=== PATIENT | male | born 1955 | race Caucasian/White ===

== ENCOUNTER 2018-12-25 17:32 | Emergency (ER) | payer OTHER ==
[~2018-12-25] VITALS: Ht 185.4 cm; Wt 69.8 kg
[2018-12-25] MEDS ORDERED: ULTRAM50 MG PO (17:49)
[2018-12-25] MEDS ORDERED: CARVEDILOL6.25 MG PO (17:49)
[2018-12-25] MEDS ORDERED: DULOXETINE HCL20 MG PO (17:49)
[2018-12-25] MEDS ORDERED: LEVOTHYROXINE50 MCG PO (17:50)
[2018-12-25] MEDS ORDERED: ATIVAN1 MG PO (18:40)
--- NOTE | 2018-12-26 16:59 | EKG ---
[facility] [address] [facility] [place] [address] Signed Normal sinus rhythm Normal ECG No previous ECGs available Confirmed by NICK COLLADO DO ([id number]) on 12/26/2018 4:59:29 PM Electronically Signed By: NICK COLLADO DO 12/26/18 1659 PATIENT NAME: AIDAN MOORE Electrocardiogram DATE OF : 59 PHYSICIAN: NICK COLLADO DO REPORT #: [id number] REPORT IS CONFIDENTIAL AND NOT TO BE RELEASED WITHOUT AUTHORIZATION
== END 2018-12-25 19:03 | disposition home or self-care (01) ==
LOC: ED 17:32
DX: R00.2 Palpitations (principal); R42 Dizziness and giddiness; T40.4X5A Adverse effect of other synthetic narcotics, initial encounter; T43.215A Adverse effect of selective serotonin and norepinephrine reuptake inhibitors, initial encounter; I10 Essential (primary) hypertension; F41.9 Anxiety disorder, unspecified; F32.9 Major depressive disorder, single episode, unspecified; Z87.891 Personal history of nicotine dependence; Z90.89 Acquired absence of other organs; Z88.8 Allergy status to other drugs, medicaments and biological substances; Z79.899 Other long term (current) drug therapy
CPT/HCPCS: 70450; 93005; 93010; 99284-25

== ENCOUNTER 2019-03-16 13:14 | Day surgery (SDC) | payer OTHER ==
[~2019-03-16] VITALS: Ht 185.4 cm; Wt 66.2 kg
[~2019-03-16 13:14] MED LIST: ATIVAN1 MG PO; CARVEDILOL6.25 MG PO; DULOXETINE HCL20 MG PO; LEVOTHYROXINE50 MCG PO; ULTRAM50 MG PO
[2019-03-16] MEDS ORDERED: GABAPENTIN300 MG PO (13:40)
--- NOTE | 2019-03-16 15:43 | NUR ---
03/16/19 1543 Ana Mabry 1520 PT PACU SLEEPY BUT AROUSABLE DENIES PAIN AND NAUSEA.
--- NOTE | 2019-03-17 18:55 | OR ---
[facility] [address] [place], [place] [address] Signed DATE OF OPERATION: 03/16/2019 SURGEON: Aidan Byrne MD PREOPERATIVE DIAGNOSIS: Colon screening. POSTOPERATIVE DIAGNOSIS: Normal colon to cecum. PROCEDURE: Total colonoscopy to cecum. ANESTHESIA: Intravenous sedation, fentanyl 200 mcg and Versed 5 mg. INDICATION: This 64-year-old white man is a patient of Sheryl Vann PA-C. He is here for a screening colonoscopy. He has no family history of colon cancer or symptoms of bleeding, diarrhea, or constipation. He has had the onset of right groin pain or more accurately scrotal pain having undergone right inguinal hernia by me 6 years ago. Examination shows no sign of recurrent hernia or other issue. He was admitted to undergo colonoscopy. He understands the risks of bleeding, infection, and perforation. FINDINGS: The prep was excellent. Complete colonoscopy was undertaken to the cecum without problem. There were no signs of diverticular formation, colitis, cancer, polyps, or other abnormality. DESCRIPTION OF PROCEDURE: The patient was brought to the endoscopy suite and placed in lateral decubitus position. He was given intravenous sedation to the point of slurred speech and nystagmus. Digital rectal examination was normal. An Olympus video colonoscope was passed in the rectum and manipulated throughout the colon ultimately intubating the cecum itself. The ileocecal valve and appendiceal orifice were normal. Scope was withdrawn from that point and examination throughout showed no sign of abnormality, specifically no polyps, diverticular formation, colitis, or cancer. Retroflexed view was normal as well. Scope was removed and the patient was taken to recovery room in good condition. Electronically Signed By: AIDAN BYRNE MD 03/17/19 9415 PATIENT NAME: AIDAN MOORE OPERATIVE REPORT DATE OF : 59 REPORT #: [id number] PHYSICIAN: AIDAN BYRNE MD PCP: SHERYL VANN PA-C REPORT IS CONFIDENTIAL AND NOT TO BE RELEASED WITHOUT AUTHORIZATION [facility] [address] [place] [id number] Signed CONCLUDING DIAGNOSIS: Normal colon. PLAN: Recommend repeat colonoscopy in 10 years, sooner if clinically indicated. He will return to the ongoing care of PA. Surya MD KAUSHIK Ridley/MELOL /[id number] cc: Sheryl Vann PA-C Copies: SHERYL VANN PA-C ~ Electronically Signed By: AIDAN BYRNE MD 03/17/19 1855 PATIENT NAME: AIDAN MOORE OPERATIVE REPORT DATE OF : 59 REPORT #: [id number] PHYSICIAN: AIDAN BYRNE MD PCP: SHERYL VANN PA-C REPORT IS CONFIDENTIAL AND NOT TO BE RELEASED WITHOUT AUTHORIZATION
== END 2019-03-16 15:56 | disposition home or self-care (01) ==
LOC: OPS 13:14 → DS 14:15 → OPS 15:56
PROVIDERS: Surgery
PROC: 0DJD8ZZ Inspection of Lower Intestinal Tract, Via Natural or Artificial Opening Endoscopic (ICD-10-PCS; principal; 2019-03-16 14:15)
DX: Z12.11 Encounter for screening for malignant neoplasm of colon (principal); E03.9 Hypothyroidism, unspecified; I10 Essential (primary) hypertension; Z88.8 Allergy status to other drugs, medicaments and biological substances
CPT/HCPCS: 99153; G0500; J2250; J3010; J7120

== ENCOUNTER 2019-09-01 12:32 | Emergency (ER) | payer OTHER ==
[~2019-09-01] VITALS: Ht 185.4 cm; Wt 74.8 kg
[~2019-09-01 12:32] MED LIST changes: +GABAPENTIN300 MG PO
--- OUTSIDE RECORDS SUMMARY | 2019-09-01 12:34 | XMS ---
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 Keysha has no Care Guidelines for this patient. Demond VISIT COUNT (12 MO.) 2 JOSH Lloyd TOTAL 2 NOTE: Visits indicate total known visits. ED/UCC VISIT TRACKING (12 MO.) 09/01/2019 12:33 [facility]igley [place] TYPE: Emergency COMPLAINT: - CHEST PAIN 12/25/2018 17:[address] [facility] [place] TYPE: Emergency COMPLAINT: - MEDICATION REACTION DIAGNOSES: - Major depressive disorder, single episode, unspecified - Advrs effect of slctv seroton/norepineph reup inhibtr, init - Anxiety disorder, unspecified - Essential (primary) hypertension - Other [facility] (current[facility] drug therapy - Acquired absence of other organs - Palpitations - Allergy status to oth drug/meds/biol subst status - Adverse effect of other synthetic narcotics, init encntr - Personal history of nicotine dependence - Dizziness and giddiness INPATIENT VISIT TRACKING (12 MO.) No inpatient visits to display in this time frame [email or web address]
[2019-09-01] MEDS ORDERED: CIPRO500 MG PO (12:44)
[2019-09-01] MEDS ORDERED: WELLBUTRIN SR200 MG PO (12:45)
[2019-09-01] MEDS ORDERED: MIRTAZAPINE30 MG PO (12:45)
[2019-09-01] MEDS ORDERED: ASPIR-TRIN325 MG PO (13:25)
[2019-09-01] MEDS ORDERED: PANTOPRAZOLE SO40 MG PO (16:18)
--- NOTE | 2019-09-01 16:34 | EKG ---
[facility] [address] [facility] [place] [address] Signed Normal sinus rhythm Normal ECG No previous ECGs available Confirmed by NICK COLLADO DO ([id number]) on 09/01/2019 4:33:59 PM Electronically Signed By: NICK COLLADO DO 09/01/19 1634 PATIENT NAME: AIDAN MOORE Electrocardiogram DATE OF : 59 PHYSICIAN: NICK COLLADO DO REPORT #: [id number] REPORT IS CONFIDENTIAL AND NOT TO BE RELEASED WITHOUT AUTHORIZATION
--- NOTE | 2019-09-01 16:34 | EKG ---
[facility] [address] [facility] [place] [address] Signed Normal sinus rhythm Nonspecific T wave abnormality Abnormal ECG When compared with ECG of 01-SEP-2019 12:34, (Unconfirmed) No significant change was found Confirmed by NICK COLLADO DO ([id number]) on 09/01/2019 4:34:11 PM Electronically Signed By: NICK COLLADO DO 09/01/19 1634 PATIENT NAME: TERESAAIDAN CANDACE Electrocardiogram DATE OF : 59 PHYSICIAN: NICK COLLADO DO REPORT #: [id number] REPORT IS CONFIDENTIAL AND NOT TO BE RELEASED WITHOUT AUTHORIZATION
== END 2019-09-01 16:26 | disposition home or self-care (01) ==
LOC: ED 12:32
DX: K21.9 Gastro-esophageal reflux disease without esophagitis (principal); R07.9 Chest pain, unspecified; I10 Essential (primary) hypertension; F32.9 Major depressive disorder, single episode, unspecified; Z79.899 Other long term (current) drug therapy
CPT/HCPCS: 71046; 80053; 83735; 84484; 85025; 93005; 93010; 99285-25

== ENCOUNTER 2020-01-25 12:14 | Emergency (ER) | payer OTHER ==
[~2020-01-25] VITALS: Ht 185.4 cm; Wt 72.6 kg
[~2020-01-25 12:14] MED LIST changes: +ASPIR-TRIN325 MG PO; +CIPRO500 MG PO; +MIRTAZAPINE30 MG PO; +PANTOPRAZOLE SO40 MG PO; +WELLBUTRIN SR200 MG PO
[2020-01-25] MEDS ORDERED: OMEPRAZOLE20 MG PO (12:35)
[2020-01-25] MEDS ORDERED: LAMOTRIGINE100 MG PO (12:36)
--- NOTE | 2020-01-25 16:58 | EKG ---
[facility] [address] [facility] [place] [address] Signed Normal sinus rhythm Anteroseptal infarct , age undetermined Abnormal ECG When compared with ECG of 01-SEP-2019 13:15, Anteroseptal infarct is now present Nonspecific T wave abnormality no longer evident in Lateral leads Confirmed by KEVIN PALMA MD ([id number]) on 01/25/2020 4:58:36 PM Electronically Signed By: KEVIN PALMA MD 01/25/20 1658 PATIENT NAME: AIDAN MOORE Electrocardiogram DATE OF : 59 PHYSICIAN: KEVIN PALMA MD REPORT #: [id number] REPORT IS CONFIDENTIAL AND NOT TO BE RELEASED WITHOUT AUTHORIZATION
== END 2020-01-25 14:40 | disposition home or self-care (01) ==
LOC: ED 12:14
DX: B34.9 Viral infection, unspecified (principal); I10 Essential (primary) hypertension; F32.9 Major depressive disorder, single episode, unspecified
CPT/HCPCS: 80053; 84484; 85025; 93005; 93010; 99284-25

== ENCOUNTER 2020-10-04 08:04 | Day surgery (SDC) | payer OTHER ==
[~2020-10-04] VITALS: Ht 182.9 cm; Wt 81.4 kg
[~2020-10-04 08:04] MED LIST changes: +LAMOTRIGINE100 MG PO; +OMEPRAZOLE20 MG PO
--- NOTE | 2020-10-04 08:10 | NUR ---
PT ARRIVED TO DAY SURGERY WALKING INDEPENDENTLY AND PLACED IN RM 7. WARM BLANKET PROVIDED.
--- NOTE | 2020-10-04 08:43 | NUR ---
PRE PROCEDURE CHECK IN COMPLETE. PT RESTING IN LOCKED AND LOWERED BED, CALL LIGHT WITHIN REACH.
--- NOTE | 2020-10-04 09:10 | NUR ---
10/04/20 0910 Page Avalos 0907 PATIENT ARRIVES TO PACU SLEEPING. RESP EVEN AND UNLABORED. ROOM AIR SATS >93%. WAKES UP WITH VERBAL STIMULI.
--- NOTE | 2020-10-04 10:08 | OR ---
[facility] [address] [place], [place] [address] Signed DATE OF OPERATION: 10/04/2020 SURGEON: Fidel Mchugh MD PREOPERATIVE DIAGNOSES: 1. History of treated Helicobacter pylori in the . 2. Gastroesophageal reflux disease. 3. Hoarseness. 4. Vomiting. POSTOPERATIVE DIAGNOSES: 1. Mild diffuse gastritis. 2. Tiny hiatal hernia. PROCEDURE: EGD with CLOtest and biopsies of the antrum and GE junction. ESTIMATED BLOOD LOSS: None. INDICATIONS: Aidan is a 65-year-old gentleman asked to see me for upper endoscopy. He told me about his colonoscopy, but never an upper endoscopy. He said he was diagnosed with H pylori in the . He said he received antibiotics. He is now taking omeprazole twice a day and he is still having breakthrough symptoms of acid reflux and vomiting. In the office, I gave him a pamphlet on upper endoscopy and we looked at that together along with the risks including, but not limited to gas bloating, crampy abdominal pain, bleeding, perforation requiring surgery, and missed diagnosis. He had expressed understanding and wished to proceed. DESCRIPTION OF PROCEDURE: Aidan was taken into our endoscopy suite and placed in the supine semi-recumbent position. He was given 3.5 mg of Versed and 100 mcg of fentanyl. The posterior oropharynx was anesthetized with Hurricaine spray. A bite block was utilized for the case. The adult gastroscope was introduced and advanced out into the third portion of the duodenum without difficulty. The duodenum and pyloric channel were unremarkable. The stomach showed mild diffuse erythematous changes throughout. No ulcerations in the pyloric channel or the stomach. Upon retroflexion of scope, he appears to have a very tiny hiatal hernia. The scope was withdrawn up through the area of the GE junction, which was compliant without stricture. There was no gastric or esophageal varices. Electronically Signed By: FIDEL MCHUGH MD 10/04/20 1008 PATIENT NAME: AIDAN MOORE OPERATIVE REPORT DATE OF : 59 REPORT #: [id number] PHYSICIAN: FIDEL MCHUGH MD PCP: SHERYL MORSE PA-C REPORT IS CONFIDENTIAL AND NOT TO BE RELEASED WITHOUT AUTHORIZATION [facility] [address] [place] [address] Signed Really, no disruption to the Z-line. No Frias's mucosa. We went and took a single biopsy along the edge of the Z-line for pathologic review. No inflammatory changes in the distal, middle or upper esophagus. The scope was withdrawn and the gas suctioned out. His vocal cords appeared unremarkable. After this, the scope was completely removed. Aidan tolerated the procedure quite well. RECOMMENDATIONS: I will see Aidan back in my office in 7 to 14 days to review his results. Fidel Mchugh MD ALB/MODL /[id number] cc: MD Sheryl Quiles PA-C Copies: FIDEL MCHUGH MD, CHLOE K PA-C ~ Electronically Signed By: FIDEL MCHUGH MD 10/04/20 1008 PATIENT NAME: AIDAN MOORE OPERATIVE REPORT DATE OF : 59 REPORT #: [id number] PHYSICIAN: FIDEL MCHUGH MD PCP: SHERYL MORSE PA-C REPORT IS CONFIDENTIAL AND NOT TO BE RELEASED WITHOUT AUTHORIZATION
--- NOTE | 2020-10-10 16:43 | PATH ---
[facility] [address] [place], [place] [address] Signed SPECIMEN(S): A ANTRUM/PYLORUS SPECIMEN(S): B GE JUNCTION SPECIMEN SOURCE: A. ANTRUM/PYLORUS B. GE JUNCTION CLINICAL HISTORY: Acid reflux. Postop: Gastritis. MICROSCOPIC DESCRIPTION: Histologic sections of all submitted blocks are examined by light microscopy. These findings, together with the gross examination, support the pathologic diagnosis. FINAL PATHOLOGIC DIAGNOSIS: A. Stomach, antrum/pylorus, biopsy: - Antral mucosa with reactive gastropathy. - Negative for Helicobacter organisms. - Negative for dysplasia or malignancy. B. Gastroesophageal junction, biopsy: - Squamocolumnar junctional mucosa with minimal chronic inflammation and reactive changes, suggestive of reflux esophagitis. - Negative for intestinal metaplasia, dysplasia, or malignancy. COMMENT: Regarding specimen A: An H. pylori immunohistochemical stain (with appropriately staining controls) was performed and is negative for Helicobacter organisms. NAL:cml:C2NR GROSS DESCRIPTION: Two specimens are received in two containers, labeled "Aidan Lewis." A. The specimen, labeled "Aidan Lewis, #1," and designated on the requisition "pylorus/antrum biopsy," is received in formalin and consists of one navas soft tissue fragment that measures 0.4 cm in greatest dimension. The specimen is entirely submitted in cassette (A1). B. The specimen, labeled "Aidan Lewis, #2," and designated on the requisition "GE junction biopsy," is received in formalin and consists of one navas soft tissue fragment that measures 0.3 cm in greatest dimension. The specimen is entirely submitted in cassette (B1). FB (under the direct supervision of a pathologist) PATIENT NAME: AIDAN LEWIS PATHOLOGY DATE OF : 59 REPORT #: [id number] PHYSICIAN: SARAH PATHOLOGY PCP: CHRIS MORSE PA-C REPORT IS CONFIDENTIAL AND NOT TO BE RELEASED WITHOUT AUTHORIZATION [facility] [address] [place], [place] [address] Signed The Gross Description was prepared using a voice recognition system. The report was reviewed for accuracy; however, sound-alike word errors, addition and/or deletions may occur. If there is any question about this report, please contact Client Services. ADDITIONAL NOTES: Immunohistochemical and/or in situ hybridization studies were performed on this case with the appropriate positive controls that react as expected. This test was developed and its performance characteristics determined by [facility]. It has not been cleared or approved by the U.S. Food and Drug Administration. The FDA has determined that such clearance or approval is not necessary. This test is used for clinical purposes. It should not be regarded as investigational or for research. [facility] is certified under the Clinical Laboratory Improvement Amendments of 1988 (CLIA) as qualified to perform high complexity clinical laboratory testing. PERFORMING LABORATORY: The technical component was performed by [facility], [address] [place] [address] (Nascar Racer: Breanna Tello MD; CLIA# [id number]). [facility], [address] [address] (CLIA# [id number]). Diagnostician: Jesenia Laurent MD Pathologist Electronically Signed 10/10/2020 Copies: ~ PATIENT NAME: TERESAAIDAN CANDACE PATHOLOGY DATE OF : 59 REPORT #: [id number] PHYSICIAN: SARAH NUNEZ PCP: CHRIS MORSE PA-C REPORT IS CONFIDENTIAL AND NOT TO BE RELEASED WITHOUT AUTHORIZATION
== END 2020-10-04 09:55 | disposition home or self-care (01) ==
LOC: DS 08:04 → OPS 08:04 → DS 09:00 → OPS 09:00
PROVIDERS: ATTEND Colon & Rectal Surgery
PROC: 0DB78ZX Excision of Stomach, Pylorus, Via Natural or Artificial Opening Endoscopic, Diagnostic (ICD-10-PCS; 2020-10-04)
PROC: 0DB48ZX Excision of Esophagogastric Junction, Via Natural or Artificial Opening Endoscopic, Diagnostic (ICD-10-PCS; principal; 2020-10-04 09:00)
DX: K29.70 Gastritis, unspecified, without bleeding (principal); K31.9 Disease of stomach and duodenum, unspecified; K21.00 Gastro-esophageal reflux disease with esophagitis, without bleeding; K44.9 Diaphragmatic hernia without obstruction or gangrene; I10 Essential (primary) hypertension; F32.9 Major depressive disorder, single episode, unspecified; E03.9 Hypothyroidism, unspecified; F17.200 Nicotine dependence, unspecified, uncomplicated; Z79.899 Other long term (current) drug therapy; Z79.82 Long term (current) use of aspirin; Z79.890 Hormone replacement therapy; Z88.8 Allergy status to other drugs, medicaments and biological substances
CPT/HCPCS: 86677; G0500; J2250; J3010; J7121

== ENCOUNTER 2022-08-17 17:36 | Emergency (ER) | payer MEDICARE, OTHER ==
[~2022-08-17] VITALS: Ht 182.9 cm; Wt 76.2 kg
--- OUTSIDE RECORDS SUMMARY | 2022-08-17 17:39 | XMS ---
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 EJeni VISIT COUNT (12 MO.) 1 JOSH Lloyd TOTAL 1 NOTE: Visits indicate total known visits. ED/UCC VISIT TRACKING (12 MO.) 08/17/2022 17:36 JOS[facility] Quigley [place] TYPE: Emergency COMPLAINT: - DIARRHEA INPATIENT VISIT TRACKING (12 MO.) No inpatient visits to display in this time frame [email or web address]
[2022-08-17] MEDS ORDERED: CARVEDILOL12.5 MG PO (17:54)
[2022-08-17] MEDS ORDERED: BUSPIRONE HCL7.5 MG PO (17:54)
[2022-08-17] MEDS ORDERED: GABAPENTIN300 MG PO (17:54)
== END 2022-08-17 18:24 | disposition home or self-care (01) ==
LOC: ED 17:36
DX: K52.1 Toxic gastroenteritis and colitis (principal); T50.8X5A Adverse effect of diagnostic agents, initial encounter; I10 Essential (primary) hypertension; F17.290 Nicotine dependence, other tobacco product, uncomplicated; Z88.8 Allergy status to other drugs, medicaments and biological substances; Z79.899 Other long term (current) drug therapy; Z79.82 Long term (current) use of aspirin
CPT/HCPCS: A9270

== ENCOUNTER 2024-12-02 16:02 | Emergency (ER) | payer MEDICARE, OTHER ==
[~2024-12-02] VITALS: Ht 182.9 cm; Wt 73.9 kg
[~2024-12-02 16:02] MED LIST changes: +ATORVASTATIN CA40 MG PO; +ATROVENT HFA12.9 GM INH; +BUSPIRONE HCL7.5 MG PO; +CARVEDILOL12.5 MG PO; +CHLORTHALIDONE25 MG PO; +ESOMEPRAZOLE MA40 MG PO; +PAXLOVID 300-11 EAC1 PO; +PREDNISONE20 MG PO
[2024-12-02] MEDS ORDERED: LAMOTRIGINE100 MG PO (17:06)
[2024-12-02 17:36] VITALS: BP 148/102
== END 2024-12-02 17:37 | disposition home or self-care (01) ==
LOC: ED 16:02
DX: K40.90 Unilateral inguinal hernia, without obstruction or gangrene, not specified as recurrent (principal); I10 Essential (primary) hypertension; F17.200 Nicotine dependence, unspecified, uncomplicated; Z88.8 Allergy status to other drugs, medicaments and biological substances; Z79.899 Other long term (current) drug therapy
CPT/HCPCS: 99283

== ENCOUNTER 2025-06-24 09:49 | Day surgery (SDC) | payer MEDICARE ==
[2025-06-24] VITALS (8 sets, daily range): BP systolic 132–148; BP diastolic 72–89
[~2025-06-24] VITALS: Ht 185.4 cm; Wt 78.9 kg
[~2025-06-24 09:49] MED LIST changes: +ASPIRIN REGIMEN81 MG PO; +BUSPIRONE HCL10 MG PO; -BUSPIRONE HCL7.5 MG PO; +CEFAZOLIN SODIUM 2 GM/20 ML SYR IV SCH; +IBLOOD GLUCOSE TEST STRIP 1 EA TEST VI PRN; +LACTATED RINGER'S 1,000 ML IV SCH; +LIDOCAINE HCL 1% 5 ML SDV INJ ONE; +LORAZEPAM1 MG PO; +OXYBUTYNIN CHLOR5 M1 PO
[2025-06-24] MEDS ORDERED: ACETAMINOPHEN 1,000 MG/100 ML VIAL ONE (12:27)
[2025-06-24] MEDS ORDERED: DEXAMETHASONE SOD PHOS 4 MG/ML VIAL ONE (12:27)
[2025-06-24] MEDS ORDERED: LIDOCAINE HCL 2% 5 ML SDV ONE (12:27)
[2025-06-24] MEDS ORDERED: fentaNYL citrate 100 MCG/2 ML VIAL ONE (12:27)
[2025-06-24] MEDS ORDERED: LORazepam 1 MG TAB PO PRN (12:45)
[2025-06-24] MEDS ORDERED: OXYCODONE/APAP 5/325 TAB PO PRN (12:45)
[2025-06-24] MEDS ORDERED: LACTATED RINGER'S 1,000 ML IV SCH (12:45)
[2025-06-24] MEDS ORDERED: HYDROmorphone HCL 1 MG/ML SYR IV PRN ×2 (12:45→13:00)
[2025-06-24] MEDS ORDERED: NALOXONE HCL 0.4 MG SYR IV PRN (13:00)
[2025-06-24] MEDS ORDERED: IBLOOD GLUCOSE TEST STRIP 1 EA TEST VI PRN (13:00)
[2025-06-24] MEDS ORDERED: fentaNYL citrate 50 MCG/ML SDV IV PRN (13:00)
[2025-06-24] MEDS ORDERED: PROCHLORPERAZINE EDISYLATE 10 MG/2 ML VIAL IV PRN (13:00)
[2025-06-24] MEDS ORDERED: LACTATED RINGER'S 1,000 ML IV ONE (13:19)
[2025-06-24] MEDS ORDERED: TRANEXAMIC ACID 1,000 MG/10 ML AMP ONE (13:41)
--- NOTE | 2025-06-24 14:25 | NUR ---
06/24/25 1425 Alvina Campbell 1356- PT PRESENTS TO PACU, SEMI NDIAYE POSITION, O2 AT 6L PER MASK. BREATHING EVEN AND NON LABORED. LR INFUSING TO RFA. [address] AND CBI INFUSING. DRAINED 1200 ML OF PINK FLUID FROM CATHETER BAG AND CBI BAGS MARKED FOR STARTING. ABD SOFT, NON DISTENDED. ALL MONITORS IN PLACE. 1402- PT WAKES ON OWN AT THIS TIME, REORIENTED TO TIME AND PLACE. REPORTS A LITTLE PAIN AND NO NAUSEA. ORIENTED TO CATHETER AND CBI USE. 1405- PT MOVED TO ROOM AIR AT THIS TIME. 1415- PT DROWSY BUT REMAINS AWAKE, REPORTS PAIN WORSENING, SOME "INSIDE" BUT ALSO AT THE TIP OF HIS PENIS. EDUCATED ON CATHETER. WILL MEDICATE PER ORDERS.
--- NOTE | 2025-06-24 14:55 | NUR ---
PATIENT ARRIVED TO THE UNIT BY BED. REPORT RECEIVED BY DHEERAJ MI FROM PACU.
[2025-06-24] MEDS ORDERED: SEVOFLURANE 250 ML BTL INH ONE (14:57)
[2025-06-24] MEDS ORDERED: GABAPENTIN800 MG PO (14:58)
[2025-06-24] MEDS ORDERED: ESOMEPRAZOLE MA40 MG PO (14:58)
--- NOTE | 2025-06-24 15:05 | NUR ---
VITAL SIGNS TAKEN AND DOCUMENTED IN THE CHART. PATIENT IS SITTING WITH THE PATIENT AT BEDSIDE. PHASE TWO ASSESSMENT COMPLETE. PATIENT IS ALERT AND ORIENTED TIMES FOUR. PATIENT WITH SCD'S ON. CARDIAC WITH NORMAL S1/S2 ON AUSCULTATION. RADIAL AND PEDAL PULSES ARE STRONG BILATERALLY. NO EDEMA NOTED. SENSATION INTACT WITH NO COMPLAINTS OF NUMBNESS OR TINGLING. PATIENT IS ON ROOM AIR AND LUNG SOUNDS ARE CLEAR THROUGHOUT. NO SOB. PATIENT IS ON A REGULAR DIET AND BOWEL TONES ARE ACTIVE IN ALL FOUR QUADRANTS. LAST BM WAS 06/24/25. PATIENT REPORTS BEING THIRSTY BUT IS NOT HUNGRY. CBI IN PLACE. URINE IS PALE PINK AT THIS TIME. IV SITE FLUSHED WITH 10 ML NORMAL SALINE. LR IS INFUSING AT 75 ML/HR. PATIENT IS ON BED REST. PATIETN REPORTS PAIN 7/10 AT THE TIP OF THE PENIS. FEW DROPS OF BLOOD NOTED ON THE CHUX. PATIENT STATED NO FURTHER NEEDS AT THIS TIME. CALL LIGHT AND PERSONAL BELONGINGS ARE WITHIN REACH.
[2025-06-24] MEDS ORDERED: MEN'S 50 PLUS1 EACH PO (16:03)
[2025-06-24] MEDS ORDERED: VITAMIN D325 MCG PO (16:04)
[2025-06-24] MEDS ORDERED: MELATONIN10 M2 PO (16:04)
[2025-06-24] MEDS ORDERED: B COMPLEX1 EACH PO (16:04)
--- NOTE | 2025-06-24 16:04 | NUR ---
MED REC COMPLETE
--- NOTE | 2025-06-24 16:10 | NUR ---
PATIENT IS LYING IN BED WITH HOB ELEVATED. PATIENT WITH EYES OPEN AND RESPIRATIONS ARE EVEN AND UNLABORED. PATIENT IS SITTING IN THE CHAIR AT BEDSIDE. URINE REMAINS VERY PALE YELLOW. PATIENT STATED NO FURTHER NEEDS AT THIS TIME. CALL LIGHT AND PERSONAL BELONGINGS ARE WITHIN REACH.
--- NOTE | 2025-06-24 16:59 | NUR ---
REPORT RECEIVED FROM DHEERAJ JOHNSON IN THE ER.
--- NOTE | 2025-06-24 17:05 | NUR ---
PATIENT ARRIVED TO THE MEDICAL SURGICAL FLOOR AT THIS TIME.
--- NOTE | 2025-06-24 17:30 | NUR ---
PATIENT IS LYING IN BED WITH HOB ELEVATED. PATIENT WITH EYES OPEN AND RESPIRATIONS ARE EVEN AND UNLABORED. URINE IS PALE PEACH COLOR. PATIENT REMAINS AT THE BEDSIDE. PATIENT STATED NO FURTHER NEEDS AT THIS TIME. CALL LIGHT AND PERSONAL BELONGINGS ARE WITHIN REACH.
--- NOTE | 2025-06-24 18:06 | NUR ---
VITAL SIGNS AND INTAKE AND OUTPUT VALUES TAKEN AND DOCUMENTED IN THE CHART. CBI IS WATERMELON COLORED. FLOW INCREASED AT THIS TIME. PATIENT REPORTS NOT GETTING A DINNER TRAY. DHEERAJ VELEZ TOOK IN SOME FOOD FOR THE PATIENT AT THIS TIME. PATIENT STATED NO FURTHER NEEDS AT THIS TIME. CALL LIGHT AND PERSONAL BELONGINGS ARE WITHIN REACH.
--- NOTE | 2025-06-24 19:36 | NUR ---
RECEIVED REPORT. CHANGED CBI BAG AND EMPTIED AGUILERA. PT REPORTS SPIKE OF PAIN AT URETHRA. CALL LIGHT IN REACH
[2025-06-24] MEDS ORDERED: GABAPENTIN 300 MG CAP PO SCH (21:00)
[2025-06-24] MEDS ORDERED: GABAPENTIN 400 MG CAP PO SCH (21:00)
[2025-06-24] MEDS ORDERED: FAMOTIDINE 20 MG/ 2 ML VIAL IV SCH (21:00)
--- NOTE | 2025-06-24 21:01 | NUR ---
VITALS, ASSESSMENT. GIVEN PRN PAIN MEDICATION. PT DECLINES OTHER MEDS FOR NOW, WOULD LIKE TO TAKE THEM LATER IN EVENING. I&OS, REPLACED CBI BAG. TITRATED RATE BACK UP TO MODERATE D/T RED OUTPUT. APPLIED LUBIRCATION JELLY TO CATHETER D/T URETHRAL DISCOMFORT. CATHETER CARE PERFORMED. NO OTHER NEEDS, CALL LIGHT IN REACH
--- NOTE | 2025-06-24 22:18 | NUR ---
PT C/O BURNING AND IRRITATION AT URETHRAL OPENING, NOT RELIEVED WITH LUBRICATING CATHETER. NOTIFIED DIMPLE ALEX FOR ORDER FOR UROJET LIDOCAINE GEL. SEE NEW ORDER.
[2025-06-24] MEDS ORDERED: LIDOCAINE 2% VISCOUS 6 ML SYR TOP ONE (22:30)
--- NOTE | 2025-06-24 23:12 | NUR ---
CHANGED CBI BAG. APPLIED UROJECT LIDOCAINE GEL TO URETHRA AND CATHETER FOR IRRITATION. PT REPORTS SOME RELIEF IN ROOM. REFRESHED ICE WATER. NO OTHER NEEDS, CALL LIGHT IN REACH
[2025-06-25] VITALS (7 sets, daily range): BP systolic 131–143; BP diastolic 79–89
--- NOTE | 2025-06-25 00:20 | NUR ---
PT ALERT IN BED, NO NEEDS FOR NOW. CBI DECREASED TO SLOW DRIP. CALL LIGHT IN REACH
--- NOTE | 2025-06-25 02:33 | NUR ---
PT REPORTS SOME CHEST PRESSURE, "LIKE SOMEONE IS SITTING ON CHEST." DENIES SOB, NAUSEA, HEADACHE, CHILLS, PAIN ELSEWHERE. VITALS SIGNS STABLE, LUNG SOUNDS CLEAR. PT IN NO ACUTE DISTRESS. NOTIFIED MD, SEE ORDER FOR STAT EKG.
--- NOTE | 2025-06-25 02:52 | NUR ---
EKG PERFORMED BY RT. GIVEN PRN PERCOCET FOR INCREASING PAIN. PT REPORTS CHEST TIGHTNESS IMPROVING AFTER INCENTIVE SPIROMETER. GIVEN SPRITE, NO OTHER NEEDS FOR NOW. CALL [facility] INREACH
--- NOTE | 2025-06-25 05:46 | NUR ---
VITALS, I&OS. PT URINE REMAINS YELLOW-PINK TINGED AFTER CLAMPING CBI. PT REPORTS PAIN IS IMPROVED FROM EARLIER. NO NEEDS PRESENTLY, CALL LIGHT IN REACH
--- NOTE | 2025-06-25 06:33 | NUR ---
VITALS, AM MEDS. GIVEN PRN PERCOCET. RESTARTED CBI AT LOW RATE D/T RED-TINGED OUTPUT. PT REPORTS PAIN IMPROVED. NO OTHER NEEDS, CALL LIGHT IN REACH
--- NOTE | 2025-06-25 07:19 | NUR ---
REPORT RECEIVED FROM DHEERAJ ROBERTS. PT RESTING IN BED AWAKE AND ALERT. CBI RUNNING SLOW WITH RED OUTPUT IN AGUILERA CATH. CBI INCREASED TO MODERATE FLOW AT THIS TIME. PT REPORTS HIS PAIN IS A 2/10 AND HAS NO REQUESTS. CALL LIGHT IN REACH.
--- NOTE | 2025-06-25 08:10 | NUR ---
MEDICATION ADMINISTERED, SEE MAR. PT CONTINUES TO REPORT PAIN TOLERABLE AT /. AGUILERA CATH TUBING CONTINUES TO HAVE SMALL AMOUNT OF SEDIMENT SIZED BLOOD CLOTS IN LINE AND THE FLUID IS A DARKER PINK. CBI MAINTAINED AT A MODERATE-SLOW FLOW. BREAKFAST TRAY ARRIVES. PT HAS NO REQUESTS, CALL LIGHT IN REACH.
--- NOTE | 2025-06-25 09:20 | NUR ---
PTs AGUILERA CATH BEGINNING TO RUN LIGHT PINK. PT CONTINUES TO REPORT PAIN 2/10 AND TOLERABLE. NO DRAINAGE FROM URETHRAL MEATUS, PT DENIES PAIN TO MEATUS WELL. NAUN-CARE PERFORMED. CBI BAG ALMOST FINISHED. PT RESTING IN BED, NO COMPLAINTS, NO REQUESTS. CALL LIGHT IN REACH.
--- NOTE | 2025-06-25 10:07 | NUR ---
CBI CLAMPED AT THIS TIME. 2100ML IN, 2400ML OUT. LIGHT PINK, WATERMELON JUICE COLOUR. PT RESTING IN BED ON CELL PHONE, NO COMPLAINTS OR REQUESTS. CALL LIGHT IN REACH.
--- NOTE | 2025-06-25 11:00 | NUR ---
Spoke with Ant. He lives with his . He does not use any DME. Dr. Aguila has scheduled his fu appts and pt will dc today. He will fu on Saturday to have his catheter removed. Pt denies any needs. is in the room and will transport pt. They deny financial or safety concerns.
--- NOTE | 2025-06-25 11:51 | NUR ---
UR CLINICAL REVIEW: 2 MN FOR VERSALUS-PER CYTOPATHOLOGIST MEETS EXTENDED STAY RECOVERY FOR TURP WITH NEED FOR CBI MEDICARE EXTENDED STAY 06/24/25 @ 1236 ORDER MATCHES REG NO AUTH REQUIRED PER MEDICARE GUIDELINES ADD 06/25/25 PER MD NOTES 06/26/25
--- NOTE | 2025-06-25 11:59 | NUR ---
MD BRISCOE NOTIFIED OF BLOOD IN AGUILERA TUBING THAT APPEARS LIKE SEDIMENT BUT NO CLOTS. MD BRISCOE STATES SHE IS SATISFIED WITH THIS AND IS OKAY WITH PT BEING DISCHARGED.
[2025-06-25] MEDS ORDERED: LEVOFLOXACIN500 MG PO (12:10)
[2025-06-25] MEDS ORDERED: OXYCODONE HCL5 M1 PO (12:11)
--- NOTE | 2025-06-25 12:51 | NUR ---
PT EDUCATED ON AGUILERA CATH CARE AND EMPTYING AND ADVISED ON WHAT SIGNS/SYMPTOMS TO NOTIFY MD OVER. PT AND PTs VERBALIZE UNDERSTANDING. CBI REMOVED AND TUBING CAPPED AT THIS TIME. AGUILERA CATH BAG SWITCHED TO 2,000ML BAG FOR PT USE. NO OTHER QUESTIONS AT THIS TIME, CALL LIGHT IN REACH AND AT BEDSIDE.
--- NOTE | 2025-06-25 15:46 | EKG ---
[facility] [address] [facility] [place] [address] Signed Normal sinus rhythm Normal ECG When compared with ECG of 10-JUN-2025 09:18, No significant change was found Confirmed by Delmis Carranza MD ([id number]) on 06/25/2025 3:46:34 PM Electronically Signed By: DELMIS CARRANZA MD 06/25/25 1546 PATIENT NAME: AIDAN MOORE Electrocardiogram DATE OF : 59 PHYSICIAN: DELMIS CARRANZA MD REPORT #: [id number] REPORT IS CONFIDENTIAL AND NOT TO BE RELEASED WITHOUT AUTHORIZATION
--- NOTE | 2025-06-28 13:04 | PATH ---
[facility] [address] [place], [place] [address] Signed SPECIMEN(S): A PROSTATE CHIPS SPECIMEN SOURCE: A. PROSTATE CHIPS CLINICAL HISTORY: BPH FINAL PATHOLOGIC DIAGNOSIS: Prostate chips: - Stromal and glandular hyperplasia with focal chronic stromal inflammation. - Patchy calcification within the glandular epithelium. JVR:[facility] MICROSCOPIC EXAMINATION: Histologic sections of all submitted blocks are examined by light microscopy. These findings, together with the gross examination, support the pathologic diagnosis. GROSS DESCRIPTION: The specimen, labeled and designated "Amy Lewis, prostate chips," is received in formalin is a three g, 3.6 x 3.5 x 1.2 cm aggregate of pink-navas to deleon rubbery soft tissue. The specimen is entirely submitted in (A1-A4). FB (under the direct supervision of a pathologist) The Gross Description was prepared using a voice recognition system. The report was reviewed for accuracy; however, sound-alike word errors, addition and/or deletions may occur. If there is any question about this report, please contact Client Services. PERFORMING LABORATORY: Technical component was performed by [facility], [address] [place] [address] (CLIA# [id number]). Professional interpretation was performed by [facility], [address] [place] [id number] (CLIA#: [id number]). Diagnostician: Earle Marinelli MD Pathologist Electronically Signed 06/28/2025 PATIENT NAME: AIDAN LEWIS PATHOLOGY DATE OF : 59 REPORT #: [id number] PHYSICIAN: SARAH PATHOLOGY PCP: CHRIS MORSE PA-C REPORT IS CONFIDENTIAL AND NOT TO BE RELEASED WITHOUT AUTHORIZATION [address] [address] Signed Copies: ~ PATIENT NAME: AIDAN LEWIS PATHOLOGY DATE OF : 59 REPORT #: [id number] PHYSICIAN: SARAH NUNEZ PCP: CHRIS MORSE PA-C REPORT IS CONFIDENTIAL AND NOT TO BE RELEASED WITHOUT AUTHORIZATION
== END 2025-06-25 13:54 | disposition home or self-care (01) ==
LOC: DS 09:49 → MS 14:20 → DS 06-25 13:54
PROVIDERS: ATTEND Urology
PROC: 0VT08ZZ Resection of Prostate, Via Natural or Artificial Opening Endoscopic (ICD-10-PCS; principal; 2025-06-24 10:45)
DX: N40.1 Benign prostatic hyperplasia with lower urinary tract symptoms (principal); N32.81 Overactive bladder; N32.89 Other specified disorders of bladder; I10 Essential (primary) hypertension; K21.9 Gastro-esophageal reflux disease without esophagitis; E03.9 Hypothyroidism, unspecified; J43.9 Emphysema, unspecified; Z87.891 Personal history of nicotine dependence; Z79.899 Other long term (current) drug therapy; Z88.8 Allergy status to other drugs, medicaments and biological substances; Z98.52 Vasectomy status
CPT/HCPCS: 00914; 51700; 88305; 93005; 93010; 96360; 96361; 96374; C1713; C1769; J0131; J0690; J0696; J1100; J1171; J2003; J2405; J2704; J3010; J7121